=== PATIENT | male | born 1960 ===

== ENCOUNTER 2024-06-05 05:31 | Day surgery (SDC) | payer OTHER ==
[2024-06-05] MEDS ORDERED: FLUMAZENIL 0.5 MG/5 ML ML IV STA (11:53)
[2024-06-05] MEDS ORDERED: DIPHENHYDRAMINE HCL 50 MG/ML VIAL 1ML IV ONE (12:00)
[2024-06-05] MEDS ORDERED: fentaNYL CITRATE 50 MCG/ML AMPUL IV PUSH ONE (12:00)
[2024-06-05] MEDS ORDERED: MIDAZOLAM HCL 2 MG/2 ML VIAL IV ONE (12:00)
== END 2024-06-05 13:00 | disposition home or self-care (01) ==
LOC: AMB-ENDOS 05:31 → CIR.AMB 11:15 → AMB-ENDOS 13:00
PROVIDERS: ATTEND Colon & Rectal Surgery
DX: K29.00 Acute gastritis without bleeding (principal); K44.9 Diaphragmatic hernia without obstruction or gangrene